=== PATIENT | female | born 1995 | race Two or more races ===

== ENCOUNTER 2019-03-15 02:14 | Emergency (ER) | payer MEDICAID ==
[~2019-03-15] VITALS: Ht 165.1 cm; Wt 62.6 kg
[2019-03-15 02:24] VITALS: BP 105/69
--- NOTE | 2019-03-15 02:55 | NUR ---
ER PHLEB AT BEDSIDE FOR BLOOD DRAW.
[2019-03-15] MEDS ORDERED: predniSONE 20 MG TABLET ONE (03:00)
[2019-03-15] MEDS: predniSONE 20 MG TABLET PO ONE (03:01)
[2019-03-15 03:15] LABS: HEMATOCRIT 40 % (33-45); HEMOGLOBIN 13.4 g/dL (11.5-14.8); LYMPHOCYTES % (AUTO) 29.5 % (20.0-44.0); MEAN CORPUSCULAR HGB CONC 34 g/dl (31.0-36.0); MEAN CORPUSCULAR VOLUME 95 fL (82-100); MONOCYTES % (AUTO) 7.6 % (2.0-12.0); NEUTROPHILS % (AUTO) 59.5 % (43.0-81.0); PLATELET COUNT (AUTO) 345 /CMM (150-450); RED BLOOD CELL COUNT(AUTO) 4.17 MIL/uL (4.0-5.2); WHITE BLOOD COUNT (AUTO) 10.8 K/uL (4.3-11.0)
[2019-03-15 03:16] LABS: BASOPHILS % (AUTO) 0.6 % (0.0-2.0); EOSINOPHILS % (AUTO) 2.8 % (0.0-6.0)
--- NOTE | 2019-03-15 03:58 | NUR ---
Patient discharged to home in stable condition. Written and verbal after care instructions given. Patient verbalizes understanding of instruction.
== END 2019-03-15 03:59 | disposition home or self-care (01) ==
LOC: ER 02:17
DX: L30.9 Dermatitis, unspecified (principal); F10.10 Alcohol abuse, uncomplicated; Y90.9 Presence of alcohol in blood, level not specified
CPT/HCPCS: 36415; 85025; 99283; J7512

== ENCOUNTER 2022-12-21 17:34 | Emergency (ER) | payer MEDICAID ==
--- NOTE | 2022-12-21 18:00 | NUR ---
CALLED TO TRIAGE, NOT READY
--- NOTE | 2022-12-21 18:58 | NUR ---
called in ed waiting room, no response
--- NOTE | 2022-12-21 19:21 | NUR ---
called no response, left without being triage
== END 2022-12-21 19:23 | disposition left against medical advice (07) ==
LOC: ER 17:34
DX: Z53.21 Procedure and treatment not carried out due to patient leaving prior to being seen by health care provider (principal)